=== PATIENT | male | born 1985 | race African-American/Black ===

== ENCOUNTER 2017-01-12 15:42 | Emergency (ER) | payer OTHER ==
[~2017-01-12] VITALS: Ht 172.7 cm; Wt 75.4 kg
[2017-01-12] MEDS ORDERED: NAPROXEN500 MG PO (18:30)
[2017-01-12 18:43] VITALS: BP 128/74
== END 2017-01-12 18:44 ==
LOC: EME 15:42
PROC: 0RSTXZZ Reposition Left Carpometacarpal Joint, External Approach (ICD-10-PCS; principal; 2017-01-12)
DX: S63.045A Dislocation of carpometacarpal joint of left thumb, initial encounter (principal); X50.1XXA Overexertion from prolonged static or awkward postures, initial encounter; Y93.61 Activity, american tackle football; Y92.149 Unspecified place in prison as the place of occurrence of the external cause
CPT/HCPCS: 73130; 99281; 99283; J1885; J3010